=== PATIENT | female | born 1970 | race Caucasian/White ===

== ENCOUNTER 2020-06-21 02:42 | Emergency (ER) | payer BC ==
[2020-06-21] MEDS ORDERED: PERCOCET 5/325 T1 EA PO (05:42)
[2020-06-21] MEDS ORDERED: [UNRECOGNIZED DRUG - OTHER] (05:45)
== END 2020-06-21 05:55 | disposition home or self-care (01) ==
LOC: ER1 02:42
DX: M79.602 Pain in left arm (principal)
CPT/HCPCS: 72125; 73030; 96372; 96374; 99285; J1100; J1885

== ENCOUNTER → 2020-07-24 | Outpatient (CLI) | payer BC ==
[~2020-07-24] MED LIST: PERCOCET 5/325 T1 EA PO; [UNRECOGNIZED DRUG - OTHER]
== END ==
LOC: KOH-I 06-26 15:15 → MRI 07-19 10:00
DX: M54.12 Radiculopathy, cervical region (principal); M47.22 Other spondylosis with radiculopathy, cervical region; M48.02 Spinal stenosis, cervical region
CPT/HCPCS: 72141